=== PATIENT | female | born 1930 | race Caucasian/White ===

== ENCOUNTER 2016-05-20 12:20 | Day surgery (SDC) | payer OTHER ==
[~2016-05-20] VITALS: Ht 165.1 cm; Wt 58.5 kg
[~2016-05-20 12:20] MED LIST: ASCORBIC ACID500 M3 PO; BACTRIM,SEPT1 TABLE1 PO; CALAN SR,COVER120 MG PO; CO Q-10100 MG PO; FOLIC ACID1 MG PO; IRON325 MG PO; LUNESTA3 MG PO; NITROGLYCERIN1 EAC4 TD; VERAPAMIL HCL240 MG PO; VITAMIN C PO; VITAMIN D2000 UNIT PO; VOLTAREN-XR100 MG PO; XALATAN2.5 ML BOTH EYES
[2016-05-20 13:09] VITALS: BP 168/89
[2016-05-20 17:16] VITALS: BP 173/95
== END 2016-05-20 17:56 | disposition home or self-care (01) ==
LOC: SDC 12:20
DX: H33.21 Serous retinal detachment, right eye (principal); H35.21 Other non-diabetic proliferative retinopathy, right eye; I10 Essential (primary) hypertension; E78.5 Hyperlipidemia, unspecified
CPT/HCPCS: J0690; J1170; J2405; J3010; J3300